=== PATIENT | female | born 1995 | race Two or more races ===

== ENCOUNTER 2024-07-29 08:00 | Day surgery (SDC) | payer BC, SELFPAY ==
[2024-07-28 10:26] VITALS: BMI 28.2
[2024-07-28 12:13] LABS: Basophils % (Auto) 1 % (0-2.5); Eosinophils # (Auto) 0.3 Thou/mm3 (0.0-0.5); Eosinophils % (Auto) 3 % (0-10); Hematocrit 39.9 % (36.0-46.0); Hemoglobin 13.2 g/dL (12.0-16.0); Immature Granulocytes % (Auto) 0 % (0-0); Immature Granulocytes Auto 0.01 Thou/mm3 (0.00-0.00); Lymphocytes # (Auto) 2.9 Thou/mm3 (1.0-4.8); Lymphocytes % (Auto) 33 % (10-50); Mean Corpuscular HGB Conc 33.1 g/dl (31.0-37.0); Mean Corpuscular Hemoglobin 27.8 pg (25.0-35.0); Mean Corpuscular Volume 84 fL (80-100); Monocytes # (Auto) 0.6 Thou/mm3 (0.0-0.8); Monocytes % (Auto) 7 % (0-12); Neutrophils # (Auto) 4.9 Thou/mm3 (1.8-7.7); Neutrophils % (Auto) 56 % (37-80); Nucleated Red Blood Cell % 0 /100 WBC (0); Platelet Count 308 Thou/mm3 (140-440); RDW Standard Deviation 39.3 fL (36.4-46.3); Red Blood Count 4.75 Miln/mm3 (4.00-5.20); White Blood Count 8.7 Thou/mm3 (3.6-11.0)
[2024-07-28 12:18] LABS: Partial Thromboplastin Time 28.2 Seconds (22.0-36.0); Prothrombin Time 10.8 Seconds (9.0-12.2)
[2024-07-28 12:19] LABS: HCG,Qualitative Serum Negative
[2024-07-28 12:45] LABS: Alanine Aminotransferase 24 U/L (10-49); Albumin, Serum 4.7 gm/dL (3.5-5.0); Albumin/Globulin Ratio 1.4 (1.2-2.2); Alkaline Phosphatase 77 U/L (46-116); Anion Gap 12 (7-16); Aspartate Amino Transferase 20 U/L (0-34); BUN/Creatinine Ratio 14 Ratio (12-20); Bilirubin,Total 0.8 mg/dL (0.3-1.2); Blood Urea Nitrogen 11 mg/dL (9-23); Calcium 9.5 mg/dL (8.3-10.6); Calcium (Corrected) 9.5 mg/dL (8.5-10.1); Carbon Dioxide 23.9 mMol/L (20.0-31.0); Chloride 100 mMol/L (98-107); Creatinine (Component) 0.8 mg/dL (0.6-1.3); Estimated Creatinine Clearance 96.8 mL/min (>60); Globulin 3.4 gm/dL (2.3-3.5); Glucose 97 mg/dL (74-106); Osmolality,Calculated 271 (275-295); Potassium 3.6 mMol/L (3.4-5.1); Sodium 136 mMol/L (136-145); Total Protein 8.1 gm/dL (5.7-8.2); eGFR > 60 See Note
[2024-07-29] VITALS (9 sets, daily range): BP systolic 114–138; BP diastolic 70–95; PULSE 75–93; RESP 12–20; TEMP 36.7–36.8; O2SAT 97–100; BMI 28.0
[2024-07-29] MEDS: RINGERS LACTATED 1000 ML 1,000 ML 20 ML IV (08:53)
--- NOTE | 2024-07-29 11:55 | ESOP_ITS ---
Date of Procedure 07/29/24 Pre Op Diagnosis Bilateral hidradenitis suppurativa Post Op Diagnosis Same Procedure Excision of the bilateral hidradenitis suppurativa left worse than the right Findings Patient had multiple areas on the left side that was showing infected and drainage and 2 rows of elliptical incision has to be used to remove those. On the right side patient had again 2 areas which needs to be excised and closed Procedure Description Of the patient was brought to the operating room LMA anesthesia was given. She received 2 g of Ancef. Then both axilla were prepped with ChloraPrep solution draped in a sterile manner. Timeout is performed. I made an elliptical incision over the 2 areas of hidradenitis on the left axilla and wide excision was carried out. The bleeding points were controlled with cautery. A small portion of the skin was left between these 2 areas reapproximated the skin edges with 5-0 nylon stitches. Unfortunately there was some tension and a small portion of the wound about 5 cm in length was left open and packed with half- inch plain gauze. The right side was then approached and here she had less severe infection. Once again elliptical incision was used to remove the skin and then bleeding vessel controlled with cautery. It was closed with interrupted 5-0 nylon sutures. Then the patient had another area over the upper arm on the inner aspect which was about 5 cm in length and this was also excised in elliptical incision closed. Dressing was applied with Adaptic and 4 x 4 gauze and tape. Patient tolerated the procedure well Anesthesia other (General LMA) Pathology / specimen Other (Hidradenitis from both the axilla) Estimated Blood Loss 100 Surgeon Lisa Enrique MD Surgical Staff Operation Date: 07/29/24 10:00 Case Staff Anesthesiologist: Prasanth Ferrera RN First Assistant: Earnest Geller
[2024-07-29] MEDS: fentaNYL CIT INJ 50 mCg/ML AMP 2ML 25 MCG IV ×2 (12:05→12:14)
[2024-07-29] MEDS: HYDROcodone/APAP 10/325 TAB PO (12:46)
== END 2024-07-29 13:13 | disposition home or self-care (01) ==
PROVIDERS: PCP Family Medicine; Referring Provider Surgery; Visit Provider Surgery
PROC: (CPT 11451; principal; 2024-07-29 10:00)
DX: L73.2 Hidradenitis suppurativa (principal)
CPT/HCPCS: 11451; 11450; 36415; 80053; 84703; 85025; 85610; 85730; A4217; A4649; J0131; J0690; J1100; J1885; J2250; J2405; J2704; J3010; J3490; J7120; A9270; J0665

== ENCOUNTER → 2024-08-26 | Outpatient (CLI) | payer BC, SELFPAY ==
[2024-08-26 09:28] LABS: Basophils % (Auto) 1 % (0-2.5); Eosinophils # (Auto) 0.3 Thou/mm3 (0.0-0.5); Eosinophils % (Auto) 4 % (0-10); Hematocrit 37.6 % (36.0-46.0); Hemoglobin 12.1 g/dL (12.0-16.0); Immature Granulocytes % (Auto) 0 % (0-0); Immature Granulocytes Auto 0.01 Thou/mm3 (0.00-0.00); Lymphocytes % (Auto) 35 % (10-50); Mean Corpuscular HGB Conc 32.2 g/dl (31.0-37.0); Mean Corpuscular Hemoglobin 27.5 pg (25.0-35.0); Mean Corpuscular Volume 86 fL (80-100); Monocytes # (Auto) 0.6 Thou/mm3 (0.0-0.8); Monocytes % (Auto) 7 % (0-12); Neutrophils # (Auto) 4.6 Thou/mm3 (1.8-7.7); Neutrophils % (Auto) 53 % (37-80); Nucleated Red Blood Cell % 0 /100 WBC (0); Platelet Count 332 Thou/mm3 (140-440); RDW Standard Deviation 37.4 fL (36.4-46.3); White Blood Count 8.7 Thou/mm3 (3.6-11.0)
[2024-08-26 09:48] LABS: Alanine Aminotransferase 31 U/L (10-49); Albumin, Serum 4.7 gm/dL (3.5-5.0); Albumin/Globulin Ratio 1.5 (1.2-2.2); Alkaline Phosphatase 77 U/L (46-116); Anion Gap 11 (7-16); Aspartate Amino Transferase 21 U/L (0-34); BUN/Creatinine Ratio 13 Ratio (12-20); Bilirubin,Total 0.7 mg/dL (0.3-1.2); Blood Urea Nitrogen 10 mg/dL (9-23); Carbon Dioxide 26.2 mMol/L (20.0-31.0); Cardiac Risk Estimate 3.3 RATIO (3.7-5.6); Chloride 102 mMol/L (98-107); Cholesterol 179 mg/dL (132-200); Creatinine (Component) 0.8 mg/dL (0.6-1.3); Globulin 3.2 gm/dL (2.3-3.5); Glucose 86 mg/dL (74-106); HDL Cholesterol 54 mg/dL (40-60); LDL Cholesterol,Calculated 104 mg/dL (0-130); Osmolality,Calculated 275 (275-295); Potassium 3.7 mMol/L (3.4-5.1); Sodium 139 mMol/L (136-145); Thyroid Stimulating Hormone 4.49 uIU/mL (0.55-4.78); Total Protein 7.9 gm/dL (5.7-8.2); Triglycerides 105 mg/dL (30-150); eGFR > 60 See Note
[2024-08-26 09:55] LABS: T4 (Thyroxine) 8.3 mcg/dL (4.5-10.9)
== END | disposition home or self-care (01) ==
LOC: COPL 08:42
PROVIDERS: PCP Family Medicine; Referring Provider Family Medicine; Visit Provider Family Medicine
DX: Z00.00 Encounter for general adult medical examination without abnormal findings (principal)
CPT/HCPCS: 36415; 80053; 80061; 84436; 84443; 85025